=== PATIENT | female | born 1930 | race Caucasian/White ===

== ENCOUNTER 2016-12-02 08:58 | Outpatient (CLI) | payer MEDICARE ==
[2016-12-02 09:36] LABS: Hemoglobin A1c 7.4 % (4.0-6.0)
[2016-12-02 09:44] LABS: ALT (SGPT) 19 U/L (0-55); AST (SGOT) 13 U/L (5-34); Albumin 3.9 g/dL (3.4-4.8); Alkaline Phosphatase 56 U/L (40-150); Anion Gap 16 mmol/L (10-20); BUN (Urea Nitrogen) 18 mg/dL (9.8-20.1); Bilirubin, Total 0.4 mg/dL (0.2-1.2); Calc. Creatinine Clearance 0 mL/min (70-130); Calcium 10.1 mg/dL (7.8-10.44); Carbon Dioxide 24 mmol/L (23-31); Chloride 106 mmol/L (98-107); Cholesterol 218 mg/dL (< 200 Desired); Estimated GFR-MDRD 54; Globulin 2.5 g/dL (2.4-3.5); Glucose 149 mg/dL (83-110); HDL Cholesterol 44 mg/dL (>60 Neg Risk); LDL Cholesterol, Calculated 135 mg/dL; Potassium 4.4 mmol/L (3.5-5.1); Protein, Total 6.4 g/dL (5.8-8.1); Sodium 142 mmol/L (136-145); Triglycerides 196 mg/dL (Less than 150)
== END 2016-12-02 08:59 ==
LOC: MADLABBHPM 08:58
PROVIDERS: ATTEND Family Medicine
DX: E11.65 Type 2 diabetes mellitus with hyperglycemia (principal)
CPT/HCPCS: 36415; 80053; 80061; 83036

== ENCOUNTER 2017-03-01 07:41 | Outpatient (CLI) | payer MEDICARE ==
[2017-03-01 08:42] LABS: ALT (SGPT) 19 U/L (0-55); AST (SGOT) 12 U/L (5-34); Albumin 3.9 g/dL (3.4-4.8); Alkaline Phosphatase 54 U/L (40-150); Anion Gap 13 mmol/L (10-20); BUN (Urea Nitrogen) 19 mg/dL (9.8-20.1); Bilirubin, Total 0.3 mg/dL (0.2-1.2); Calc. Creatinine Clearance 0 mL/min (70-130); Calcium 10.3 mg/dL (7.8-10.44); Carbon Dioxide 25 mmol/L (23-31); Cardiac Risk 5.8 (Less than 4.5); Chloride 108 mmol/L (98-107); Cholesterol 215 mg/dL (< 200 Desired); Estimated GFR-MDRD 54; Globulin 2.6 g/dL (2.4-3.5); Glucose 146 mg/dL (83-110); HDL Cholesterol 37 mg/dL (>60 Neg Risk); LDL Cholesterol, Calculated 136 mg/dL; Potassium 4.5 mmol/L (3.5-5.1); Protein, Total 6.5 g/dL (5.8-8.1); Sodium 141 mmol/L (136-145); Triglycerides 211 mg/dL (Less than 150)
[2017-03-01 17:32] LABS: Creatinine, Urine 109.16 mg/dL (47-110); Microalbumin Urine 3.5 mg/dL (0.5-50.0); Microalbumin/Creat Ratio 32.1 mg/g (Less than 30)
== END 2017-03-01 07:42 | disposition home or self-care (01) ==
LOC: MADLABBHPM 07:41
PROVIDERS: ATTEND Family Medicine
DX: E11.65 Type 2 diabetes mellitus with hyperglycemia (principal)
CPT/HCPCS: 36415; 80053; 80061; 82043; 83036

== ENCOUNTER 2017-03-07 13:30 | Outpatient (CLI) | payer MEDICARE ==
[2017-03-07 18:29] LABS: Microalbumin-Urine Less than 1.0 mg/dL
== END 2017-03-07 13:31 | disposition home or self-care (01) ==
LOC: MADLABBHPM 13:30
PROVIDERS: ATTEND Family Medicine
DX: E11.65 Type 2 diabetes mellitus with hyperglycemia (principal)
CPT/HCPCS: 36415; 82043

== ENCOUNTER 2017-03-14 11:27 | Emergency (ER) | payer MEDICARE ==
[2017-03-14] MEDS ORDERED: HYDROcodone/Acetaminophen 10/325 mg Tablet ONE (12:11)
[2017-03-14] MEDS ORDERED: Naproxen 500 MG TAB ONE (12:12)
--- NOTE | 2017-03-14 12:40 | CT ---
EXAM: NONCONTRAST HEAD CT: HISTORY: The patient tripped and fell getting into car. Hematoma above the left eye. COMPARISON: None. TECHNIQUE: A noncontrast head CT is performed in the axial plane. Reformatted images are submitted for interpr etation. FINDINGS: No parenchymal hemorrhage. No extraaxial hematoma. No midline shift. Basilar cisterns are patent. Age-appropriate atrophy. Cortical stanley-white matter differentiation is preserved. Ventricles and sulci are patent and symmetric. Chronic small-vessel ischemic changes of the white matter are noted. There is a left periorbital hematoma. Bilateral ocular lens implants are appropriately located. Th ere is adequate aeration of the sinuses and mastoid air cells. A small mucous retention cyst in the right maxillary sinus is noted. Calvarium is intact. IMPRESSION: 1. Left periorbital posttraumatic change. 2. No intracranial posttraumatic sequelae. POS: [facility]
--- NOTE | 2017-03-14 12:49 | RAD ---
LEFT KNEE FIVE VIEWS HISTORY: Fall. Pain. COMPARISON: None. FINDINGS: Joint spaces are preserved. The lateral view suggests a possible minimally displaced patella fractu re. Correlate for point tenderness. Suprapatellar effusion is difficult to appreciate. IMPRESSION: Minimally displaced patella fracture. Correlate clinically. POS: [facility]
--- NOTE | 2017-03-14 13:00 | CT ---
EXAM: CERVICAL SPINE CT WITHOUT CONTRAST: HISTORY: Patient got her feet tangled while getting into car and fell. Left facial bruise. COMPARISON: None. TECHNIQUE: Cervical spine CT is performed without contrast. Reformatted images are submitted for interpretatio n. FINDINGS: Sagittal reformatted images demonstrate appropriate alignment. There is mild anterolisthesis of C3 upon C4, C4 upon C5, and C5 upon C6 likely on the basis of degenerative change. The current study i s not tailored to assess for ligamentous injury. There is no prevertebral soft tissue swelling. No epidural hematoma. There are varying degrees of central canal stenosis and foraminal narrowing on the basis of degenerative change. Limited evaluation by technique. There is anterior osteophyte formation at C5, C6, C7, and T1. Coronal reformatted images demonstrate an intact odontoid process. Lateral masses of C1 and C2 gabriel culate appropriately. There is appropriate articulation of the intraarticular facets. Visualized soft tissue neck structures demonstrate a large heterogeneous thyroid gland. Nonemergent thyroid ultrasound is recommended. Lung apices and upper mediastinum are unremarkable. Cervical spine vertebral body height is maintained. There is no fracture. IMPRESSION: 1. No fracture. 2. Additional findings as detailed above. POS: [facility]
== END 2017-03-14 13:45 | disposition home or self-care (01) ==
LOC: MADERS 11:27
DX: S82.002A Unspecified fracture of left patella, initial encounter for closed fracture (principal); S00.83XA Contusion of other part of head, initial encounter; S00.03XA Contusion of scalp, initial encounter; E11.9 Type 2 diabetes mellitus without complications; I10 Essential (primary) hypertension; Z79.82 Long term (current) use of aspirin; Z79.84 Long term (current) use of oral hypoglycemic drugs; Z79.899 Other long term (current) drug therapy; W19.XXXA Unspecified fall, initial encounter
CPT/HCPCS: 70450; 72125

== ENCOUNTER 2017-04-14 13:46 | Outpatient (CLI) | payer MEDICARE ==
--- NOTE | 2017-04-14 16:38 | RAD ---
2 VIEWS LEFT KNEE: Date: 04/14/17 HISTORY: Patellar fracture. Brace in place. COMPARISON: 03/14/17. FINDINGS: Lateral view is rotated, which limits adequate evaluation of the patella. There is ill-defined lucen cy seen at the junction of the mid portion of the lower pole of the patella consistent with patient' s patellar fracture. Fracture lucency is less perceptible, although lucency does persist. There is n o distraction or displacement of the fracture fragments. No significant callus formation is seen. T here is subcutaneous soft tissue swelling about the knee. No additional fracture or dislocation is s een. IMPRESSION: 1. Suboptimal positioning of the lateral projection, but the left patellar fracture is again presen t, although fracture lucency is less discernible, which is probably related to mild interval healing . Continued follow-up is recommended. 2. Subcutaneous soft tissue swelling. POS: [facility]
--- NOTE | 2017-04-14 16:57 | RAD ---
THREE VIEW LEFT ANKLE 04/14/17 CLINICAL HISTORY: Left ankle edema. FINDINGS: There is soft tissue swelling of the left ankle. Mortise is intact. No acute fracture is seen. Dorsa l and plantar calcaneal enthesophytes are present. Scattered osteophytosis noted. IMPRESSION: Left ankle soft tissue edema. No underlying fracture. Correlate clinically. POS: [facility]
== END 2017-04-14 13:47 | disposition home or self-care (01) ==
LOC: MADRAD 13:46
PROVIDERS: ATTEND Orthopaedic Surgery
DX: S82.035A Nondisplaced transverse fracture of left patella, initial encounter for closed fracture (principal)

== ENCOUNTER 2017-06-08 16:20 | Outpatient (CLI) | payer MEDICARE ==
[2017-06-08 16:47] LABS: Hemoglobin A1c 7.1 % (4.0-6.0)
== END 2017-06-08 16:21 | disposition home or self-care (01) ==
LOC: MADLAB 16:20
PROVIDERS: ATTEND Family Medicine
DX: E11.42 Type 2 diabetes mellitus with diabetic polyneuropathy (principal)
CPT/HCPCS: 83036

== ENCOUNTER 2017-06-17 09:03 | Outpatient (CLI) | payer MEDICARE ==
[2017-06-17 09:46] LABS: #Basophils 0.2 thou/uL (0.0-0.2); #Eosinphils 0.3 thou/uL (0.0-0.7); #Lymphocytes 5.1 thou/uL (1.20-3.40); #Monocytes 0.9 thou/uL (0.11-0.59); #Neutrophils 4.7 thou/uL (1.40-6.50); %Basophils 1.4 % (0.0-1.0); %Eosinophils 3.1 % (0.0-10.0); %Lymphocytes 45.4 % (21.0-51.0); %Monocytes 7.9 % (0.0-10.0); %Neutrophils 42.2 % (42.0-75.0); Hemoglobin 13.4 g/dL (12.0-16.0); Mean Corpuscular HGB CONC 33.4 g/dL (32.0-36.0); Mean Corpuscular Hemoglobin 29.7 pg (27.0-31.0); Mean Corpuscular Volume 88.9 fl (81.0-99.0); Mean Platelet Volume 7.9 fL (7.4-10.4); Platelet Count 215 thou/uL (130-400); RBC Distribution Width 13.6 % (11.5-14.5); White Blood Cell (WBC) Count 11.1 thou/uL (4.8-10.8)
[2017-06-17 09:47] LABS: INR-International Normal Ratio 1.9
[2017-06-17 09:48] LABS: PTT 39.5 SEC (22.9-36.1)
[2017-06-17 10:49] LABS: ALT (SGPT) 20 U/L (8-55); AST (SGOT) 13 U/L (5-34); Albumin 3.8 g/dL (3.4-4.8); Alkaline Phosphatase 77 U/L (40-150); Anion Gap 12 mmol/L (10-20); BUN (Urea Nitrogen) 15 mg/dL (9.8-20.1); Bilirubin, Total 0.3 mg/dL (0.2-1.2); Calc. Creatinine Clearance 0 mL/min (70-130); Calcium 9.9 mg/dL (7.8-10.44); Carbon Dioxide 25 mmol/L (23-31); Chloride 106 mmol/L (98-107); Estimated GFR-MDRD 70; Globulin 2.8 g/dL (2.4-3.5); Glucose 185 mg/dL (83-110); Potassium 4.4 mmol/L (3.5-5.1); Protein, Total 6.6 g/dL (6.0-8.3); Sodium 139 mmol/L (136-145)
[2017-06-17 11:01] LABS: Hemoglobin A1c 7.5 % (4.0-6.0)
== END 2017-06-17 09:04 | disposition home or self-care (01) ==
LOC: MADLABBHPM 09:03
PROVIDERS: ATTEND Family Medicine
DX: I82.402 Acute embolism and thrombosis of unspecified deep veins of left lower extremity (principal); E11.65 Type 2 diabetes mellitus with hyperglycemia
CPT/HCPCS: 36415; 80053; 83036; 85025; 85610; 85730

== ENCOUNTER 2017-09-12 08:14 | Outpatient (CLI) | payer MEDICARE ==
[2017-09-12 08:48] LABS: #Basophils 0.2 thou/uL (0.0-0.2); #Eosinphils 0.3 thou/uL (0.0-0.7); #Lymphocytes 4.6 thou/uL (1.20-3.40); #Monocytes 0.8 thou/uL (0.11-0.59); %Basophils 1.7 % (0.0-1.0); %Monocytes 7.5 % (0.0-10.0); %Neutrophils 40.8 % (42.0-75.0); Hemoglobin 12.9 g/dL (12.0-16.0); Mean Corpuscular HGB CONC 32.8 g/dL (32.0-36.0); Mean Corpuscular Hemoglobin 29.5 pg (27.0-31.0); Mean Corpuscular Volume 89.8 fl (81.0-99.0); Mean Platelet Volume 7.5 fL (7.4-10.4); Platelet Count 226 thou/uL (130-400); RBC Distribution Width 14.1 % (11.5-14.5); Red Blood Cell (RBC) Count 4.37 mill/uL (4.20-5.40); White Blood Cell (WBC) Count 9.9 thou/uL (4.8-10.8)
[2017-09-12 08:57] LABS: INR-International Normal Ratio 1.3; PTT 31.9 SEC (22.9-36.1)
[2017-09-12 09:09] LABS: Hemoglobin A1c 7.9 % (4.0-6.0)
[2017-09-12 09:52] LABS: ALT (SGPT) 13 U/L (8-55); AST (SGOT) 9 U/L (5-34); Albumin 3.7 g/dL (3.4-4.8); Alkaline Phosphatase 78 U/L (40-150); Anion Gap 14 mmol/L (10-20); BUN (Urea Nitrogen) 13 mg/dL (9.8-20.1); Bilirubin, Total 0.3 mg/dL (0.2-1.2); Calc. Creatinine Clearance 0 mL/min (70-130); Calcium 9.3 mg/dL (7.8-10.44); Carbon Dioxide 26 mmol/L (23-31); Chloride 105 mmol/L (98-107); Estimated GFR-MDRD 67; Globulin 2.9 g/dL (2.4-3.5); Glucose 161 mg/dL (83-110); Potassium 3.9 mmol/L (3.5-5.1); Protein, Total 6.6 g/dL (6.0-8.3); Sodium 141 mmol/L (136-145)
== END 2017-09-12 08:15 | disposition home or self-care (01) ==
LOC: MADLABBHPM 08:14
PROVIDERS: ATTEND Family Medicine
DX: E11.65 Type 2 diabetes mellitus with hyperglycemia (principal)
CPT/HCPCS: 36415; 80053; 83036; 85025; 85610; 85730

== ENCOUNTER 2018-10-24 15:28 | Emergency (ER) | payer MEDICARE ==
[~2018-10-24 15:28] MED LIST: Iopamidol 370 76% 125 ML VIAL FS ONE
[2018-10-24 16:41] LABS: Prothrombin Time 12.8 SEC (12.0-14.7)
[2018-10-24 16:49] LABS: Eosinophils 5 % (0-10); Hemoglobin 13.9 g/dL (12.0-16.0); Lymphocytes 19 % (21-51); MDiff Complete? YES; Mean Corpuscular HGB CONC 32.2 g/dL (32.0-36.0); Mean Corpuscular Hemoglobin 29.3 pg (27.0-31.0); Mean Corpuscular Volume 90.8 fL (78.0-98.0); Mean Platelet Volume 7.1 fL (7.4-10.4); Monocytes 4 % (0-10); Myelocyte 1 % (0-0); Neutrophil 31 % (42-75); PLT Morphology Comment Appears Adequate; Platelet Count 287 thou/uL (130-400); RBC Distribution Width 13.3 % (11.5-14.5); RBC Morphology Normal; Reactive Lymphocytes 40 % (0-10); Red Blood Cell (RBC) Count 4.74 mill/uL (4.20-5.40); White Blood Cell (WBC) Count 12.6 thou/uL (4.8-10.8)
[2018-10-24 16:52] LABS: ALT (SGPT) 13 U/L (8-55); AST (SGOT) 10 U/L (5-34); Albumin 4.3 g/dL (3.4-4.8); Alkaline Phosphatase 85 U/L (40-150); Anion Gap 17 mmol/L (10-20); BUN (Urea Nitrogen) 25 mg/dL (9.8-20.1); Bilirubin, Total 0.2 mg/dL (0.2-1.2); Calc. Creatinine Clearance 0 mL/min (70-130); Calcium 10.7 mg/dL (7.8-10.44); Carbon Dioxide 23 mmol/L (23-31); Chloride 106 mmol/L (98-107); Estimated GFR-MDRD 45; Globulin 3.1 g/dL (2.4-3.5); Glucose 189 mg/dL (83-110); Potassium 4.9 mmol/L (3.5-5.1); Protein, Total 7.4 g/dL (6.0-8.3); Sodium 141 mmol/L (136-145)
[2018-10-24] MEDS ORDERED: Aspirin 325 MG TAB ONE (17:33)
--- NOTE | 2018-10-24 17:50 | CT ---
CT BRAIN WITHOUT CONTRAST: HISTORY: Weakness and right arm feels like it is asleep. COMPARISON: 03/14/2017 TECHNIQUE: Multiple contiguous axial images were obtained in a CT of the brain without contrast. FINDINGS: There are diffuse scattered hypodensities in the subcortical and periventricular white matter, likely secondary to small vessel ischemic disease. No large confluent infarction is seen. There is no luis fernando dence of hydrocephalus, intracranial hemorrhage, or extraaxial fluid collection. The calvarium and overlying soft tissues are unremarkable. The visualized paranasal sinuses and mast oid air cells are well aerated. IMPRESSION: No evidence of acute intracranial abnormality. POS: [facility]
--- NOTE | 2018-10-24 19:26 | CT ---
CTA HEAD WITH CONTRAST: HISTORY: Weakness and right arm numbness. COMPARISON: CT brain from 10/24/2018. TECHNIQUE: Multiple contiguous axial images were obtained in a CTA of the head with contrast. Three-dimensional sagittal and coronal MIP reformats were performed. FINDINGS: A small amount of plaque is seen in the cavernous portion of both internal carotid arteries. The int racranial internal carotid arteries branch into normal appearing anterior and middle cerebral arterie s. There is no evidence of aneurysmal dilatation, focal stenosis, or occlusion in the anterior circu lation. Both vertebral arteries form a normal appearing basilar artery. The posterior cerebral arteries and cerebellar arteries are patent. There are bilateral posterior communicating arteries. There is no e vidence of focal stenosis, occlusion, or aneurysmal dilatation in the posterior circulation. IMPRESSION: No significant intracranial arterial vascular abnormalities. POS: [facility]
== END 2018-10-24 19:43 | disposition short-term general hospital (02) ==
LOC: MADERS 15:28
DX: R53.1 Weakness (principal); E11.9 Type 2 diabetes mellitus without complications; I10 Essential (primary) hypertension; Z79.84 Long term (current) use of oral hypoglycemic drugs; Z79.82 Long term (current) use of aspirin; Z79.899 Other long term (current) drug therapy
CPT/HCPCS: 36415; 70450; 70470; 80053; 85025; 85610; 93005

== ENCOUNTER 2018-10-27 14:55 | Inpatient (IN) | payer MEDICARE ==
[2018-10-27] MEDS ORDERED: Acetaminophen 325 MG TAB PO PRN (18:24)
[2018-10-27] MEDS ORDERED: Senokot S 8.6-50 MG TAB PO PRN (19:39)
[2018-10-27] MEDS: Gemfibrozil 600 MG TAB PO SCH (20:51)
[2018-10-27] MEDS: Atorvastatin Calcium 10 MG TAB PO SCH (20:51)
[2018-10-27] MEDS: Polyethylene Glycol 3350 17 GM Packet PO SCH (20:52)
[2018-10-27] MEDS ORDERED: Dextrose 5% in Water 1,000 ML IV PRN (22:42)
[2018-10-27] MEDS ORDERED: Dextrose 50% Abboject 50 ML SYRINGE IVP PRN (22:42)
[2018-10-28] MEDS: Aspirin 81 mg Enteric Coated Tablet PO SCH (08:52)
[2018-10-28] MEDS: metFORMIN 500 MG TAB PO SCH ×2 (08:52→17:18)
[2018-10-28] MEDS: Clopidogrel Bisulfate 75 MG TAB PO SCH (08:52)
[2018-10-28] MEDS: Gemfibrozil 600 MG TAB PO SCH ×2 (08:52→21:22)
[2018-10-28] MEDS: Lisinopril 10 MG TAB PO SCH (08:53)
[2018-10-28] MEDS: Hydrochlorothiazide 25 MG TAB PO SCH (08:53)
[2018-10-28] MEDS: HumaLOG 300 UNITS/3 ML VIAL SC PRN ×2 (08:53→17:19)
[2018-10-28] MEDS ORDERED: Pregabalin 50 MG CAP PO SCH (09:00)
[2018-10-28] MEDS: Polyethylene Glycol 3350 17 GM Packet PO SCH (21:22)
[2018-10-28] MEDS: Atorvastatin Calcium 10 MG TAB PO SCH (21:22)
[2018-10-29] MEDS: HumaLOG 300 UNITS/3 ML VIAL SC PRN ×2 (09:15→16:53)
[2018-10-29] MEDS: Gemfibrozil 600 MG TAB PO SCH ×2 (09:16→20:45)
[2018-10-29] MEDS: Lisinopril 10 MG TAB PO SCH (09:16)
[2018-10-29] MEDS: Polyethylene Glycol 3350 17 GM Packet PO SCH ×2 (09:17→20:45)
[2018-10-29] MEDS: Clopidogrel Bisulfate 75 MG TAB PO SCH (09:17)
[2018-10-29] MEDS: metFORMIN 500 MG TAB PO SCH ×3 (09:17→20:45)
[2018-10-29] MEDS: Aspirin 81 mg Enteric Coated Tablet PO SCH (09:17)
[2018-10-29] MEDS: Hydrochlorothiazide 25 MG TAB PO SCH (09:17)
[2018-10-29] MEDS ORDERED: glipiZIDE 5 MG TAB PO SCH (17:15)
[2018-10-29] MEDS: Atorvastatin Calcium 10 MG TAB PO SCH (20:45)
[2018-10-29] MEDS: Pregabalin 50 MG CAP PO SCH (20:46)
[2018-10-29] MEDS ORDERED: Pregabalin 100 MG CAP PO SCH (21:00)
[2018-10-30] MEDS ORDERED: Alogliptin 25 MG TAB PO SCH (09:00)
[2018-10-30] MEDS: metFORMIN 500 MG TAB PO SCH ×2 (09:50→20:40)
[2018-10-30] MEDS: Lisinopril 10 MG TAB PO SCH (09:50)
[2018-10-30] MEDS: Aspirin 81 mg Enteric Coated Tablet PO SCH (09:51)
[2018-10-30] MEDS: Clopidogrel Bisulfate 75 MG TAB PO SCH (09:51)
[2018-10-30] MEDS: HumaLOG 300 UNITS/3 ML VIAL SC PRN ×2 (09:51→17:11)
[2018-10-30] MEDS: Hydrochlorothiazide 25 MG TAB PO SCH (09:51)
[2018-10-30] MEDS: Gemfibrozil 600 MG TAB PO SCH ×2 (09:51→20:40)
[2018-10-30] MEDS: glipiZIDE 5 MG TAB PO SCH ×2 (09:51→17:11)
[2018-10-30] MEDS: Pregabalin 50 MG CAP PO SCH (20:39)
[2018-10-30] MEDS: Atorvastatin Calcium 10 MG TAB PO SCH (20:40)
[2018-10-30] MEDS: Polyethylene Glycol 3350 17 GM Packet PO SCH (20:40)
[2018-10-31] MEDS: Gemfibrozil 600 MG TAB PO SCH ×2 (08:43→20:06)
[2018-10-31] MEDS: Clopidogrel Bisulfate 75 MG TAB PO SCH (08:43)
[2018-10-31] MEDS: metFORMIN 500 MG TAB PO SCH ×2 (08:43→20:06)
[2018-10-31] MEDS: Hydrochlorothiazide 25 MG TAB PO SCH (08:43)
[2018-10-31] MEDS: Aspirin 81 mg Enteric Coated Tablet PO SCH (08:44)
[2018-10-31] MEDS: JARDIANCE (EMPAGLIFLOZIN) 10 MG TABLET PO SCH ×2 (08:44→10:02)
[2018-10-31] MEDS: HumaLOG 300 UNITS/3 ML VIAL SC PRN ×2 (08:44→17:06)
[2018-10-31] MEDS: Lisinopril 10 MG TAB PO SCH (08:44)
[2018-10-31] MEDS: glipiZIDE 5 MG TAB PO SCH ×2 (08:44→17:06)
[2018-10-31] MEDS: Atorvastatin Calcium 10 MG TAB PO SCH (20:05)
[2018-10-31] MEDS: Pregabalin 50 MG CAP PO SCH (20:05)
[2018-10-31] MEDS: Polyethylene Glycol 3350 17 GM Packet PO SCH (20:07)
[2018-11-01] MEDS: Lisinopril 10 MG TAB PO SCH (08:14)
[2018-11-01] MEDS: Hydrochlorothiazide 25 MG TAB PO SCH (08:14)
[2018-11-01] MEDS: Clopidogrel Bisulfate 75 MG TAB PO SCH (08:14)
[2018-11-01] MEDS: Gemfibrozil 600 MG TAB PO SCH ×2 (08:14→20:21)
[2018-11-01] MEDS: metFORMIN 500 MG TAB PO SCH ×2 (08:14→20:21)
[2018-11-01] MEDS: Aspirin 81 mg Enteric Coated Tablet PO SCH (08:14)
[2018-11-01] MEDS: glipiZIDE 5 MG TAB PO SCH ×2 (08:14→16:31)
[2018-11-01] MEDS: JARDIANCE (EMPAGLIFLOZIN) 10 MG TABLET PO SCH (08:15)
[2018-11-01] MEDS: HumaLOG 300 UNITS/3 ML VIAL SC PRN ×2 (08:16→16:31)
[2018-11-01] MEDS: Pregabalin 50 MG CAP PO SCH (20:20)
[2018-11-01] MEDS: Atorvastatin Calcium 10 MG TAB PO SCH (20:21)
[2018-11-01] MEDS: Polyethylene Glycol 3350 17 GM Packet PO SCH (20:22)
[2018-11-02] MEDS: glipiZIDE 5 MG TAB PO SCH ×2 (07:17→17:01)
[2018-11-02] MEDS: HumaLOG 300 UNITS/3 ML VIAL SC PRN ×2 (08:11→17:01)
[2018-11-02] MEDS: JARDIANCE (EMPAGLIFLOZIN) 10 MG TABLET PO SCH (08:13)
[2018-11-02] MEDS: Gemfibrozil 600 MG TAB PO SCH ×2 (08:13→21:14)
[2018-11-02] MEDS: Lisinopril 10 MG TAB PO SCH (08:13)
[2018-11-02] MEDS: metFORMIN 500 MG TAB PO SCH ×2 (08:13→21:14)
[2018-11-02] MEDS: Aspirin 81 mg Enteric Coated Tablet PO SCH (08:14)
[2018-11-02] MEDS: Clopidogrel Bisulfate 75 MG TAB PO SCH (08:14)
[2018-11-02] MEDS: Hydrochlorothiazide 25 MG TAB PO SCH (08:14)
[2018-11-02] MEDS: Atorvastatin Calcium 10 MG TAB PO SCH (21:14)
[2018-11-02] MEDS: Polyethylene Glycol 3350 17 GM Packet PO SCH (21:14)
[2018-11-02] MEDS: Pregabalin 50 MG CAP PO SCH (21:17)
[2018-11-03] MEDS: Gemfibrozil 600 MG TAB PO SCH ×2 (08:15→21:22)
[2018-11-03] MEDS: HumaLOG 300 UNITS/3 ML VIAL SC PRN ×2 (08:15→17:03)
[2018-11-03] MEDS: metFORMIN 500 MG TAB PO SCH ×2 (08:15→21:22)
[2018-11-03] MEDS: Lisinopril 10 MG TAB PO SCH (08:15)
[2018-11-03] MEDS: JARDIANCE (EMPAGLIFLOZIN) 10 MG TABLET PO SCH ×2 (08:16→17:04)
[2018-11-03] MEDS: Hydrochlorothiazide 25 MG TAB PO SCH (08:16)
[2018-11-03] MEDS: Aspirin 81 mg Enteric Coated Tablet PO SCH (08:16)
[2018-11-03] MEDS: Clopidogrel Bisulfate 75 MG TAB PO SCH (08:16)
[2018-11-03] MEDS: glipiZIDE 5 MG TAB PO SCH ×2 (08:16→17:03)
[2018-11-03] MEDS: Atorvastatin Calcium 10 MG TAB PO SCH (21:22)
[2018-11-03] MEDS: Pregabalin 50 MG CAP PO SCH (21:24)
[2018-11-03] MEDS: Polyethylene Glycol 3350 17 GM Packet PO SCH (21:36)
--- NOTE | 2018-11-04 03:17 | HP ---
ATTENDING/PRIMARY CARE PHYSICIAN: Dr. Roman. AERONAUTICAL DESIGN ENGINEER: Dr. Reilly. NEUROLOGIST: Dr. Cotter. REASON FOR ADMISSION: Skilled rehab, status post hospitalization for acute stroke. HISTORY OF PRESENT ILLNESS: Ms. Leal is a pleasant 88-year-old female, who is very known to me. She has a history of hypertension, noninsulin requiring diabetes, history of left leg DVT and neuropathy. The patient lives by herself and is independent with ADLs. 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 She observed herself and later that day symptoms persisted and her family sent her to the ER for further evaluation. She was initially seen at [facility], wherein a CT scan of the head was obtained. CT of the brain with contrast showed no significant intracranial, arterial, vascular abnormalities, but a small plaque seen in the cavernous portion of both internal carotid arteries. There was no evidence of aneurysmal dilatation, focal stenosis or occlusion in the anterior circulation nor posterior circulation. Patient was recommended for inpatient observation for possible stroke. She was transferred to [facility] per patient's request, .At [facility], her MRI of the brain a [facility] was obtained on 10/25/2018. MRI of the brain demonstrated evidence of small left thalamic stroke. Her carotid ultrasound on 10/25/2018 demonstrated nonobstructive disease, but no hemodynamically significant carotid artery disease. The patient was seen by Dr. Reilly for further cardiac evaluation. Echocardiogram on 10/25/2018 showed normal chamber sizes, wall thickness with LVEF of 55% to 60%, mild grade 1 LV diastolic dysfunction, and mitral annular calcification with mild mitral regurgitation. Her EKG showed sinus rhythm with first-degree AV block, rate of 71 per minute, and QTc interval was normal. The patient was treated with aspirin 81 mg and started on Plavix 75 mg p.o. daily. All her medications were continued during that time. The patient reports that she was supposed to be on Lyrica 50 mg q.a.m. and 100 mg at bedtime. They recommended her to continue the bedtime dose only of Lyrica at 100 mg daily and requesting if she could do this here in [place]. Overall, the patient reports that she is doing a lot better. She still has some right weakness, but she is able to move her right upper arm more than the initial presentation. She is still weak more on the right lower extremity. At this point, she has unsteady gait requiring the use of a walker. She reports no other issues at this time. Family is present at the time of visit, and they are all comfortable having the patient to have a skilled rehab here in [place] before going back to the home environment. PAST MEDICAL HISTORY: Hypertension, diabetes, dyslipidemia, neuropathy, and history of left leg DVT treated with anticoagulant/Coumadin short term, improved. Left knee fracture from fall at home. PAST SURGICAL HISTORY: Cataract removal in 2003, basal cell carcinoma removal of the nose. Sciatica years ago, did improve with chiropractor treatment. ALLERGIES: INTOLERANCE TO NIACIN. MEDICATIONS: 1. Aspirin 81 mg p.o. daily. 2. Coenzyme Q 100 mg p.o. daily. 3. Lisinopril 20 mg p.o. daily. 4. Metformin 500 mg p.o. b.i.d. 5. Omeprazole 20 mg daily. 6. Lyrica 100 mg p.o. at bedtime. 7. Atorvastatin 40 mg p.o. at bedtime. 8. Hydrochlorothiazide 25 mg p.o. daily. 9. Gemfibrozil 600 mg p.o. b.i.d. 10. Acetaminophen 650 mg p.o. q.6 hours p.r.n. Previous medications at home that are not included in her current hospital medications include: 1. Jardiance 100 mg p.o. daily. 2. Glimepiride 4 mg p.o. b.i.d. FAMILY HISTORY: Brain tumor in brother. Breast cancer in mother. Positive for type 2 diabetes in both mother and brother. SOCIAL HISTORY: The patient's occupation, retired. 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 Marital status, the patient is . She has children. She is a nonsmoker. Denies illicit drug use or alcohol use. REVIEW OF SYSTEMS: GENERAL: Denies fever, chills, loss of appetite, weight loss. She reports general weakness and fatigue. HEENT: No acute visual changes, hearing changes, or cold symptoms. RESPIRATORY: No cough, sputum production, bloody sputum, shortness of breath, or wheezing. CARDIAC: No chest pain, palpitations, dyspnea on exertion, leg edema, or cyanosis. GI: No nausea, vomiting, abdominal pain, diarrhea, or constipation. She reports chronic reflux disease. She denies rectal bleeding or black tarry stools. GENITOURINARY: No dysuria, hematuria, frequency, urgency, incontinence, or hematuria. MUSCULOSKELETAL: Reports intermittent joint pain. No significant low back pain , myalgia, or joint swelling. PSYCHIATRIC: No depressive symptoms, anxiety, insomnia, hallucinations. SKIN: Denies rash, nonhealing ulcers, or pruritus. NEUROLOGIC: As per HPI. No dysphagia, no dysphasia. No tremors, tics, or seizure like activities. PHYSICAL EXAMINATION: VITAL SIGNS: Blood pressure 118/55, temperature 98.3, pulse 75, respirations 20 , O2 saturations 97% on room air. Weight 163 pounds and 2 ounces. Height 5 feet 6 inches. GENERAL: The patient is awake, alert, and oriented x3, comfortable on exam, no signs of agony, not in distress. HEENT: Normocephalic and atraumatic. PERRL. Intact EOM. No nystagmus. Nonicteric sclerae. NECK: Supple. No LAD. No JVD. No bruit. CHEST: Normal excursion and nonlabored breathing. LUNGS: Clear to auscultation bilaterally. CARDIAC: RRR. Normal S1 and S2. No murmurs. ABDOMEN: Soft, obese, normoactive bowel sounds. Nondistended and nontender. No rebound. No guarding. Negative CVA tenderness bilaterally. EXTREMITIES: No edema, no cyanosis, no joint effusions, no erythema. Pulses 2+ bilaterally. NEUROLOGIC: Positive right hemiplegia. Motor; right lower extremity 3/5 right upper extremity 4/5, left upper and lower extremities 5/5. Sensations intact. She has spontaneous speech. No facial asymmetry. Shrugs shoulders equally. 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 Gait, unsteady. PSYCHIATRIC: Appears calm with appropriate demeanor and affect. ASSESSMENT AND PLAN: 1. Deconditioning/general weakness. 2. 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 Hypertension, well controlled. 4. Mrt-nlkftha-pgapekhcw diabetes. 5. Peripheral neuropathy. 6. Chronic kidney disease stage 3. 7. Chronic gastroesophageal reflux. 8. Abnormality of gait secondary to residual right hemiplegia. PLAN: The patient is admitted to [facility] [place] for purposes of skilled rehab. We will order PT and OT in order to gain modified independence with her gait and ADL skills prior to returning to the home environment. Her comorbidities include hypertension and diabetes. We will continue all current medications as per list. We will continue to monitor the patient for any medical comorbidities that may interfere with her rehab progress. Overall, the patient's motivation to complete her therapy and to reach her goal before she goes back home is a good sign that she will cooperate completely with the therapy to be able to reach her goal within the next 2 to 3 weeks of therapy stay. CODE STATUS: The patient reports do not resuscitate in front of her family, as consists of her son and her daughter. Family verbalizes full understanding and agrees to the patient's wishes. We will order do not resuscitate. Further recommendations depending on the hospital course. Job ID: [id number] [facility]
[2018-11-04] MEDS: metFORMIN 500 MG TAB PO SCH ×2 (08:19→20:21)
[2018-11-04] MEDS: Hydrochlorothiazide 25 MG TAB PO SCH (08:19)
[2018-11-04] MEDS: Clopidogrel Bisulfate 75 MG TAB PO SCH (08:19)
[2018-11-04] MEDS: HumaLOG 300 UNITS/3 ML VIAL SC PRN ×2 (08:20→17:07)
[2018-11-04] MEDS: Gemfibrozil 600 MG TAB PO SCH ×2 (08:20→20:21)
[2018-11-04] MEDS: Aspirin 81 mg Enteric Coated Tablet PO SCH (08:20)
[2018-11-04] MEDS: Lisinopril 10 MG TAB PO SCH (08:20)
[2018-11-04] MEDS: glipiZIDE 5 MG TAB PO SCH ×2 (08:20→17:07)
[2018-11-04] MEDS: JARDIANCE (EMPAGLIFLOZIN) 10 MG TABLET PO SCH (17:11)
[2018-11-04] MEDS: Atorvastatin Calcium 10 MG TAB PO SCH (20:21)
[2018-11-04] MEDS: Pregabalin 50 MG CAP PO SCH (20:23)
[2018-11-04] MEDS: Polyethylene Glycol 3350 17 GM Packet PO SCH (20:28)
[2018-11-05] MEDS: Aspirin 81 mg Enteric Coated Tablet PO SCH (08:17)
[2018-11-05] MEDS: metFORMIN 500 MG TAB PO SCH ×2 (08:17→20:18)
[2018-11-05] MEDS: Clopidogrel Bisulfate 75 MG TAB PO SCH (08:17)
[2018-11-05] MEDS: glipiZIDE 5 MG TAB PO SCH ×2 (08:18→17:11)
[2018-11-05] MEDS: Gemfibrozil 600 MG TAB PO SCH ×2 (08:18→20:18)
[2018-11-05] MEDS: HumaLOG 300 UNITS/3 ML VIAL SC PRN ×2 (08:18→17:13)
[2018-11-05] MEDS: Lisinopril 10 MG TAB PO SCH (08:18)
[2018-11-05] MEDS: Hydrochlorothiazide 25 MG TAB PO SCH (08:18)
[2018-11-05] MEDS: JARDIANCE (EMPAGLIFLOZIN) 10 MG TABLET PO SCH (17:12)
[2018-11-05] MEDS: Polyethylene Glycol 3350 17 GM Packet PO SCH (20:18)
[2018-11-05] MEDS: Pregabalin 50 MG CAP PO SCH (20:18)
[2018-11-05] MEDS: Atorvastatin Calcium 10 MG TAB PO SCH (20:18)
[2018-11-06] MEDS: Aspirin 81 mg Enteric Coated Tablet PO SCH (08:28)
[2018-11-06] MEDS: metFORMIN 500 MG TAB PO SCH ×2 (08:28→20:21)
[2018-11-06] MEDS: Clopidogrel Bisulfate 75 MG TAB PO SCH (08:29)
[2018-11-06] MEDS: Hydrochlorothiazide 25 MG TAB PO SCH (08:29)
[2018-11-06] MEDS: glipiZIDE 5 MG TAB PO SCH ×2 (08:29→17:07)
[2018-11-06] MEDS: Lisinopril 10 MG TAB PO SCH (08:29)
[2018-11-06] MEDS: HumaLOG 300 UNITS/3 ML VIAL SC PRN ×2 (08:29→17:08)
[2018-11-06] MEDS: Gemfibrozil 600 MG TAB PO SCH ×2 (08:29→20:19)
[2018-11-06] MEDS: JARDIANCE (EMPAGLIFLOZIN) 10 MG TABLET PO SCH (17:07)
[2018-11-06] MEDS: Atorvastatin Calcium 10 MG TAB PO SCH (20:19)
[2018-11-06] MEDS: Pregabalin 50 MG CAP PO SCH (20:20)
[2018-11-06] MEDS: Polyethylene Glycol 3350 17 GM Packet PO SCH (20:21)
[2018-11-07] MEDS: glipiZIDE 5 MG TAB PO SCH ×2 (07:40→16:45)
[2018-11-07] MEDS: HumaLOG 300 UNITS/3 ML VIAL SC PRN ×2 (08:00→16:45)
[2018-11-07] MEDS: Aspirin 81 mg Enteric Coated Tablet PO SCH (09:17)
[2018-11-07] MEDS: metFORMIN 500 MG TAB PO SCH ×2 (09:17→21:07)
[2018-11-07] MEDS: Clopidogrel Bisulfate 75 MG TAB PO SCH (09:17)
[2018-11-07] MEDS: Lisinopril 10 MG TAB PO SCH (09:17)
[2018-11-07] MEDS: Gemfibrozil 600 MG TAB PO SCH ×2 (09:17→21:07)
[2018-11-07] MEDS: Hydrochlorothiazide 25 MG TAB PO SCH (09:17)
[2018-11-07] MEDS: JARDIANCE (EMPAGLIFLOZIN) 10 MG TABLET PO SCH (16:46)
[2018-11-07] MEDS: Pregabalin 50 MG CAP PO SCH (21:07)
[2018-11-07] MEDS: Atorvastatin Calcium 10 MG TAB PO SCH (21:07)
[2018-11-07] MEDS: Polyethylene Glycol 3350 17 GM Packet PO SCH (21:09)
[2018-11-08] MEDS: glipiZIDE 5 MG TAB PO SCH ×2 (08:23→17:04)
[2018-11-08] MEDS: Lisinopril 10 MG TAB PO SCH (08:23)
[2018-11-08] MEDS: Gemfibrozil 600 MG TAB PO SCH ×2 (08:23→21:09)
[2018-11-08] MEDS: Aspirin 81 mg Enteric Coated Tablet PO SCH (08:23)
[2018-11-08] MEDS: metFORMIN 500 MG TAB PO SCH ×2 (08:23→21:08)
[2018-11-08] MEDS: Hydrochlorothiazide 25 MG TAB PO SCH (08:23)
[2018-11-08] MEDS: Clopidogrel Bisulfate 75 MG TAB PO SCH (08:23)
[2018-11-08] MEDS: HumaLOG 300 UNITS/3 ML VIAL SC PRN ×2 (08:23→17:04)
[2018-11-08] MEDS: JARDIANCE (EMPAGLIFLOZIN) 10 MG TABLET PO SCH (17:04)
[2018-11-08] MEDS: Atorvastatin Calcium 10 MG TAB PO SCH (21:08)
[2018-11-08] MEDS: Pregabalin 50 MG CAP PO SCH (21:09)
[2018-11-08] MEDS: Polyethylene Glycol 3350 17 GM Packet PO SCH (21:11)
[2018-11-09] MEDS: metFORMIN 500 MG TAB PO SCH ×2 (08:19→20:40)
[2018-11-09] MEDS: Gemfibrozil 600 MG TAB PO SCH ×2 (08:19→20:40)
[2018-11-09] MEDS: Lisinopril 10 MG TAB PO SCH (08:20)
[2018-11-09] MEDS: glipiZIDE 5 MG TAB PO SCH ×2 (08:20→17:08)
[2018-11-09] MEDS: Aspirin 81 mg Enteric Coated Tablet PO SCH (08:20)
[2018-11-09] MEDS: Clopidogrel Bisulfate 75 MG TAB PO SCH (08:20)
[2018-11-09] MEDS: Hydrochlorothiazide 25 MG TAB PO SCH (08:20)
[2018-11-09] MEDS: HumaLOG 300 UNITS/3 ML VIAL SC PRN ×2 (08:21→17:07)
[2018-11-09] MEDS: JARDIANCE (EMPAGLIFLOZIN) 10 MG TABLET PO SCH (17:08)
[2018-11-09] MEDS: Polyethylene Glycol 3350 17 GM Packet PO SCH (20:40)
[2018-11-09] MEDS: Pregabalin 50 MG CAP PO SCH (20:41)
[2018-11-09] MEDS: Atorvastatin Calcium 10 MG TAB PO SCH (20:56)
[2018-11-10] MEDS: Gemfibrozil 600 MG TAB PO SCH ×2 (08:23→20:15)
[2018-11-10] MEDS: Lisinopril 10 MG TAB PO SCH (08:23)
[2018-11-10] MEDS: Hydrochlorothiazide 25 MG TAB PO SCH (08:23)
[2018-11-10] MEDS: Clopidogrel Bisulfate 75 MG TAB PO SCH (08:23)
[2018-11-10] MEDS: Aspirin 81 mg Enteric Coated Tablet PO SCH (08:23)
[2018-11-10] MEDS: HumaLOG 300 UNITS/3 ML VIAL SC PRN ×2 (08:24→17:28)
[2018-11-10] MEDS: metFORMIN 500 MG TAB PO SCH ×2 (08:24→20:15)
[2018-11-10] MEDS: glipiZIDE 5 MG TAB PO SCH ×2 (08:24→17:27)
[2018-11-10] MEDS: JARDIANCE (EMPAGLIFLOZIN) 10 MG TABLET PO SCH (17:27)
[2018-11-10] MEDS: Atorvastatin Calcium 10 MG TAB PO SCH (20:15)
[2018-11-10] MEDS: Polyethylene Glycol 3350 17 GM Packet PO SCH (20:16)
[2018-11-10] MEDS: Pregabalin 50 MG CAP PO SCH (20:19)
[2018-11-11] MEDS: glipiZIDE 5 MG TAB PO SCH ×2 (07:47→17:29)
[2018-11-11] MEDS: metFORMIN 500 MG TAB PO SCH ×2 (07:47→20:17)
[2018-11-11] MEDS: Clopidogrel Bisulfate 75 MG TAB PO SCH (07:48)
[2018-11-11] MEDS: Aspirin 81 mg Enteric Coated Tablet PO SCH (07:48)
[2018-11-11] MEDS: Gemfibrozil 600 MG TAB PO SCH ×2 (07:48→20:17)
[2018-11-11] MEDS: HumaLOG 300 UNITS/3 ML VIAL SC PRN ×2 (07:54→17:30)
[2018-11-11] MEDS: Hydrochlorothiazide 25 MG TAB PO SCH (10:31)
[2018-11-11] MEDS: Lisinopril 10 MG TAB PO SCH (10:32)
[2018-11-11] MEDS: JARDIANCE (EMPAGLIFLOZIN) 10 MG TABLET PO SCH (17:29)
[2018-11-11] MEDS: Atorvastatin Calcium 10 MG TAB PO SCH (20:17)
[2018-11-11] MEDS: Pregabalin 50 MG CAP PO SCH (20:17)
[2018-11-11] MEDS: Polyethylene Glycol 3350 17 GM Packet PO SCH (20:18)
[2018-11-12] MEDS: Lisinopril 10 MG TAB PO SCH (08:24)
[2018-11-12] MEDS: metFORMIN 500 MG TAB PO SCH ×2 (08:24→20:19)
[2018-11-12] MEDS: Aspirin 81 mg Enteric Coated Tablet PO SCH (08:24)
[2018-11-12] MEDS: Hydrochlorothiazide 25 MG TAB PO SCH (08:24)
[2018-11-12] MEDS: Clopidogrel Bisulfate 75 MG TAB PO SCH (08:25)
[2018-11-12] MEDS: Gemfibrozil 600 MG TAB PO SCH ×2 (08:25→20:19)
[2018-11-12] MEDS: glipiZIDE 5 MG TAB PO SCH ×2 (08:25→17:21)
[2018-11-12] MEDS: JARDIANCE (EMPAGLIFLOZIN) 10 MG TABLET PO SCH (17:21)
[2018-11-12] MEDS: HumaLOG 300 UNITS/3 ML VIAL SC PRN (17:22)
[2018-11-12] MEDS: Atorvastatin Calcium 10 MG TAB PO SCH (20:19)
[2018-11-12] MEDS: Pregabalin 50 MG CAP PO SCH (20:20)
[2018-11-12] MEDS: Polyethylene Glycol 3350 17 GM Packet PO SCH (20:20)
[2018-11-13] MEDS: Aspirin 81 mg Enteric Coated Tablet PO SCH (08:33)
[2018-11-13] MEDS: Clopidogrel Bisulfate 75 MG TAB PO SCH (08:33)
[2018-11-13] MEDS: glipiZIDE 5 MG TAB PO SCH ×2 (08:33→17:17)
[2018-11-13] MEDS: metFORMIN 500 MG TAB PO SCH ×2 (08:33→20:44)
[2018-11-13] MEDS: Gemfibrozil 600 MG TAB PO SCH ×2 (08:33→20:45)
[2018-11-13] MEDS: Hydrochlorothiazide 25 MG TAB PO SCH (08:33)
[2018-11-13] MEDS: Lisinopril 10 MG TAB PO SCH (08:33)
[2018-11-13] MEDS: JARDIANCE (EMPAGLIFLOZIN) 10 MG TABLET PO SCH (17:17)
[2018-11-13] MEDS: HumaLOG 300 UNITS/3 ML VIAL SC PRN (17:18)
[2018-11-13] MEDS: Polyethylene Glycol 3350 17 GM Packet PO SCH (20:44)
[2018-11-13] MEDS: Atorvastatin Calcium 10 MG TAB PO SCH (20:44)
[2018-11-13] MEDS: Pregabalin 50 MG CAP PO SCH (20:44)
[2018-11-14] MEDS: Hydrochlorothiazide 25 MG TAB PO SCH (08:10)
[2018-11-14] MEDS: Aspirin 81 mg Enteric Coated Tablet PO SCH (08:10)
[2018-11-14] MEDS: metFORMIN 500 MG TAB PO SCH ×2 (08:10→20:49)
[2018-11-14] MEDS: Lisinopril 10 MG TAB PO SCH (08:10)
[2018-11-14] MEDS: glipiZIDE 5 MG TAB PO SCH ×2 (08:10→17:15)
[2018-11-14] MEDS: Clopidogrel Bisulfate 75 MG TAB PO SCH (08:10)
[2018-11-14] MEDS: Gemfibrozil 600 MG TAB PO SCH ×2 (08:10→20:49)
[2018-11-14] MEDS: JARDIANCE (EMPAGLIFLOZIN) 10 MG TABLET PO SCH (17:22)
[2018-11-14] MEDS: HumaLOG 300 UNITS/3 ML VIAL SC PRN (17:26)
[2018-11-14] MEDS: Pregabalin 50 MG CAP PO SCH (20:48)
[2018-11-14] MEDS: Atorvastatin Calcium 10 MG TAB PO SCH (20:48)
[2018-11-14] MEDS: Polyethylene Glycol 3350 17 GM Packet PO SCH (20:49)
[2018-11-15] MEDS: Hydrochlorothiazide 25 MG TAB PO SCH (08:30)
[2018-11-15] MEDS: Lisinopril 10 MG TAB PO SCH (08:30)
[2018-11-15] MEDS: glipiZIDE 5 MG TAB PO SCH ×2 (08:30→17:07)
[2018-11-15] MEDS: Aspirin 81 mg Enteric Coated Tablet PO SCH (08:30)
[2018-11-15] MEDS: metFORMIN 500 MG TAB PO SCH ×2 (08:30→21:03)
[2018-11-15] MEDS: Gemfibrozil 600 MG TAB PO SCH ×2 (08:30→21:02)
[2018-11-15] MEDS: Clopidogrel Bisulfate 75 MG TAB PO SCH (08:30)
[2018-11-15] MEDS: JARDIANCE (EMPAGLIFLOZIN) 10 MG TABLET PO SCH (17:08)
[2018-11-15] MEDS: Pregabalin 50 MG CAP PO SCH (21:00)
[2018-11-15] MEDS: Polyethylene Glycol 3350 17 GM Packet PO SCH (21:02)
[2018-11-15] MEDS: Atorvastatin Calcium 10 MG TAB PO SCH (21:02)
[2018-11-16] MEDS: glipiZIDE 5 MG TAB PO SCH ×2 (07:39→17:30)
[2018-11-16] MEDS: Gemfibrozil 600 MG TAB PO SCH ×2 (08:15→21:27)
[2018-11-16] MEDS: Aspirin 81 mg Enteric Coated Tablet PO SCH (08:15)
[2018-11-16] MEDS: Lisinopril 10 MG TAB PO SCH (08:15)
[2018-11-16] MEDS: Hydrochlorothiazide 25 MG TAB PO SCH (08:16)
[2018-11-16] MEDS: Clopidogrel Bisulfate 75 MG TAB PO SCH (08:16)
[2018-11-16] MEDS: metFORMIN 500 MG TAB PO SCH ×2 (08:16→21:27)
[2018-11-16] MEDS: JARDIANCE (EMPAGLIFLOZIN) 10 MG TABLET PO SCH (17:32)
[2018-11-16 18:48] VITALS: BMI 25.9
[2018-11-16] MEDS: Atorvastatin Calcium 10 MG TAB PO SCH (21:27)
[2018-11-16] MEDS: Pregabalin 50 MG CAP PO SCH (21:29)
[2018-11-16] MEDS: Polyethylene Glycol 3350 17 GM Packet PO SCH (21:30)
[2018-11-17 07:10] VITALS: BP 118/58; TEMP 98.6
[2018-11-17] MEDS: metFORMIN 500 MG TAB PO SCH (08:06)
[2018-11-17] MEDS: Hydrochlorothiazide 25 MG TAB PO SCH (08:06)
[2018-11-17] MEDS: glipiZIDE 5 MG TAB PO SCH (08:06)
[2018-11-17] MEDS: Lisinopril 10 MG TAB PO SCH (08:06)
[2018-11-17] MEDS: Clopidogrel Bisulfate 75 MG TAB PO SCH (08:06)
[2018-11-17] MEDS: Gemfibrozil 600 MG TAB PO SCH (08:07)
[2018-11-17] MEDS: Aspirin 81 mg Enteric Coated Tablet PO SCH (08:07)
--- NOTE | 2018-11-18 04:38 | DIS ---
DATE OF ADMISSION: 10/27/2018 DATE OF DISCHARGE: 11/17/2018 REASON FOR ADMISSION: Skilled rehab in [place] [facility] post hospitalization. DISPOSITION: Home. CONDITION ON DISCHARGE: Stable. DIAGNOSES: 1. Physical deconditioning/general weakness. 2. Status post acute cerebrovascular accident with left thalamic stroke leaving her with residual right hemiparesis. 3. Hypertension, well controlled. 4. Ndj-rpvalpi-tqnvstooz diabetes, controlled. 5. Peripheral neuropathy. 6. Chronic kidney disease, stage 3. 7. Chronic gastroesophageal reflux. 8. Abnormality of gait secondary to residual right hemiparesis. MEDICATIONS: 1. Aspirin 81 mg p.o. daily. 2. Coenzyme Q 100 mg p.o. daily. 3. Lisinopril 20 mg p.o. daily. 4. Metformin 1000 mg p.o. b.i.d. 5. Omeprazole 20 mg p.o. daily. 6. Lyrica 100 mg p.o. at bedtime. 7. Atorvastatin 20 mg p.o. at bedtime. 8. Hydrochlorothiazide 25 mg p.o. daily. 9. Gemfibrozil 600 mg p.o. b.i.d. 10. Acetaminophen 650 mg p.o. q.6 hours p.r.n. 11. Jardiance 100 mg p.o. daily. 12. Glipizide 5 mg p.o. b.i.d. DIET: 2000 kilocalorie ADA diet. ACTIVITY: To use rolling walker at all times. FOLLOWUP: Follow up with Dr. Roman in 1 week or sooner with concern. Follow up with Dr. Reilly on 12/09/2018 at 09:45 a.m. Follow up with Dr. Cotter in 2 weeks for neuro care. To arrange for home health of choice for PT, OT prior to discharge. HISTORY OF THE PRESENT ILLNESS AND HOSPITAL COURSE: Ms. Leal is a very pleasant 88-year-old female who has multiple chronic medical conditions including diabetes, hypertension, dyslipidemia, peripheral vascular disease, and history of leg DVT. Prior to hospitalization, the patient lived by herself and was independent with her ADLs. On 10/24/2018, the patient reported an acute onset of sudden right side weakness. She was initially sent to [place] [facility] for initial evaluation wherein CT scan of the brain with contrast showed no significant intracranial arterial nor vascular abnormalities, but a small plaque seen in the cavernous portion of both internal carotid arteries. There was no evidence of aneurysmal dilatation, focal stenosis, or occlusion in the anterior circulation nor posterior circulation. The patient was recommended for inpatient observation for possible stroke. She was transferred to [facility] per the patient's request. Her MRI of the brain at [facility] obtained on 10/25/2018 showed evidence of small left thalamic stroke. Her carotid ultrasound on 10/25/2018 demonstrated nonobstructive disease, but no hemodynamically significant carotid artery. The patient was seen by Dr. Reilly during this hospitalizatio for further cardiac evaluationn. Echocardiogram on 10/25/2018 showed normal chamber sizes, wall thickness with LVEF of 55% to 60% with mild grade 1 left ventricular diastolic dysfunction and mitral annular calcification with mild mitral regurgitation. The patient was started on Plavix 75 mg p.o. daily in addition to her aspirin 81 mg p.o. daily. After the patient was observed, she was then transferred to [facility] for further skilled rehab. She presented to us in [facility] with mild right hemiparesis and unsteady gait requiring rolling walker for assistive device. The patient made a marked interval improvement with overall functional status during her rehab course. She was walking 250 feet using rolling walker with contact guard assist prior to discharge. Patient was reported to be making progress, but has not met the goal yet, thus she was recommended to continue therapy at home with home health. On 11/17/2018, the patient was adamant to go home and family was comfortable taking care of the patient back home with the current condition. Vital signs prior to discharge; blood pressure 118/58, temp 98.6, pulse 64, respirations 16, O2 sats 97 on room air. Weight 160 pounds and 5 ounces. Height 5 feet 6. Job ID: [id number] [facility]
== END 2018-11-17 09:34 | disposition home or self-care (01) | DRG 57 ==
LOC: MADMS 14:55
PROVIDERS: ADMIT Family Medicine; ATTEND Family Medicine
DX: I69.351 Hemiplegia and hemiparesis following cerebral infarction affecting right dominant side (principal); R53.81 Other malaise; Z66 Do not resuscitate; E11.42 Type 2 diabetes mellitus with diabetic polyneuropathy; I12.9 Hypertensive chronic kidney disease with stage 1 through stage 4 chronic kidney disease, or unspecified chronic kidney disease; N18.3 Chronic kidney disease, stage 3 (moderate); K21.9 Gastro-esophageal reflux disease without esophagitis; R26.9 Unspecified abnormalities of gait and mobility; E11.22 Type 2 diabetes mellitus with diabetic chronic kidney disease; E78.5 Hyperlipidemia, unspecified; Z86.718 Personal history of other venous thrombosis and embolism; Z98.49 Cataract extraction status, unspecified eye; Z98.890 Other specified postprocedural states; Z85.828 Personal history of other malignant neoplasm of skin; Z79.82 Long term (current) use of aspirin; Z79.899 Other long term (current) drug therapy; Z79.84 Long term (current) use of oral hypoglycemic drugs
CPT/HCPCS: 36416; G8987-GO-CL; G8988-GO-CI; J7070

== ENCOUNTER 2019-12-13 10:10 | Emergency (ER) | payer MEDICARE ==
--- NOTE | 2019-12-13 11:26 | RAD ---
PA AND LATERAL VIEWS CHEST: Date: 12/13/2019 FINDINGS: Comparison made with exam of 03/08/11. The heart size is normal. The aorta is tortuous. The lungs are well expanded without lobar consolidat ion, pneumothoraces, or pleural effusions. There are degenerative changes in the spine. IMPRESSION: No radiographic evidence of acute cardiopulmonary process. POS: [facility]
== END 2019-12-13 11:32 | disposition home or self-care (01) ==
LOC: MADERS 10:10
DX: J40 Bronchitis, not specified as acute or chronic (principal); J06.9 Acute upper respiratory infection, unspecified; E11.9 Type 2 diabetes mellitus without complications; I10 Essential (primary) hypertension; Z79.84 Long term (current) use of oral hypoglycemic drugs; Z86.73 Personal history of transient ischemic attack (TIA), and cerebral infarction without residual deficits; Z79.899 Other long term (current) drug therapy; Z79.02 Long term (current) use of antithrombotics/antiplatelets
CPT/HCPCS: 71046; 94664